=== PATIENT | female | born 1960 | race African-American/Black ===

== ENCOUNTER 2017-06-24 10:40 | Emergency (ER) | payer OTHER ==
[2017-06-24 10:52] VITALS: TEMP 98.1; BMI 32.5
--- NOTE | 2017-06-24 12:01 | PDOC ---
History of Present Illness - General History Source: Patient - History of Present Illness Timing/Duration: reports: resolved prior to arrival Quality: reports: mild <Umm Will Last Filed: 06/24/17 12:11> <SheltonRosanna - Last Filed: 06/24/17 12:21> - General Chief Complaint: Nausea Stated Complaint: NAUSEA Time Seen by Provider: 06/24/17 11:18 Past History - Past Medical History COPD: No Diabetes: Yes Thyroid Disease: Yes (HYPO) - Suicide/Smoking/Psychosocial Hx Smoking History: Never smoked <Umm Will - Last Filed: 06/24/17 12:11> <Brenna Peoplesth - Last Filed: 06/24/17 12:21> - Past Medical History Allergies/Adverse Reactions: Allergies Allergy/AdvReac Type Severity Reaction Status Date / Time Penicillins Allergy Hives Verified 06/24/17 10:48 Review of Systems - Review of Systems Constitutional: No: Chills, Fever Respiratory: No: Shortness of Breath Cardiac (ROS): No: Chest Pain ABD/GI: Yes: Nausea. No: Vomiting, Abdominal cramping <Umm Will Last Filed: 06/24/17 12:11> *Physical Exam - Vital Signs Last Vital Signs Temp Pulse Resp BP Pulse Ox 98.1 F 91 H 19 145/81 97 06/24/17 10:48 06/24/17 10:48 06/24/17 10:48 06/24/17 10:48 06/24/17 10:48 - Physical Exam General Appearance: Yes: Appropriately Dressed. No: Apparent Distress HEENT: positive: Normal Voice Neck: positive: Supple Respiratory/Chest: positive: Lungs Clear, Normal Breath Sounds. negative: Respiratory Distress Cardiovascular: positive: Regular Rate, S1, S2 Gastrointestinal/Abdominal: positive: Soft. negative: Tender Integumentary: positive: Dry, Warm Neurologic: positive: Fully Oriented, Alert, Normal Mood/Affect <Umm Will Last Filed: 06/24/17 12:11> - Vital Signs Last Vital Signs Temp Pulse Resp BP Pulse Ox 98.1 F 86 20 137/84 97 06/24/17 10:48 06/24/17 12:11 06/24/17 12:11 06/24/17 12:11 06/24/17 10:48 <Rosanna Peoples - Last Filed: 06/24/17 12:21> Medical Decision Making - Medical Decision Making 06/24/17 11:58 56-year-old female, denies any past medical history, presents with nausea that has since resolved. Patient states while at work today, she felt like she had an "upset stomach", was nauseous, and felt a bitter taste in the back of her mouth. States symptoms resolved on its own but here for evaluation. No history of similar episode. Patient denies chest pain, shortness of breath or diaphoresis. Patient well-appearing and stable in ED with unremarkable exam. Possible gastritis/GERD. As symptoms have since resolved, no intervention needed in ED. Will dc with PMD follow-up if symptoms recur <Umm Will - Last Filed: 06/24/17 12:11> *DC/Admit/Observation/Transfer <Umm Will - Last Filed: 06/24/17 12:11> - Attestations Physician Attestion: I reviewed the case with the mid-level practitioner and agree with the mid- level practitioner's assessment, diagnosis and disposition. <Rosanna Peoples - Last Filed: 06/24/17 12:21> Diagnosis at time of Disposition: Nausea - Discharge Dispostion Disposition: HOME Condition at time of disposition: Improved - Referrals - Patient Instructions Printed Discharge Instructions: Gastritis Additional Instructions: Your symptoms could possibly represent gastritis or GERD. If symptoms recur, you can try Pepcid, Zantac or Maalox [id number] up with your PMD - Post Discharge Activity
[2017-06-24 12:13] VITALS: BP 137/84; PULSE 86
== END 2017-06-24 12:20 | disposition home or self-care (01) ==
LOC: JER 10:40
DX: R11.0 Nausea (principal); E03.9 Hypothyroidism, unspecified; E11.9 Type 2 diabetes mellitus without complications
CPT/HCPCS: 99281-25

== ENCOUNTER 2017-09-20 07:19 | Emergency (ER) | payer OTHER ==
[2017-09-20 07:36] VITALS: BP 140/77; PULSE 72; TEMP 98; BMI 32.5
[2017-09-20] MEDS ORDERED: IBUPROFEN 600 MG TABLET (FP) PO ONE ×2 (08:14→08:33)
[2017-09-20] MEDS ORDERED: traMADol HCL 50 MG TABLET PO ONE (08:14)
[2017-09-20] MEDS ORDERED: traMADol HCL 50 MG TABLET ONE (08:33)
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
== END 2017-09-20 10:08 | disposition home or self-care (01) ==
LOC: JER 07:19
DX: S63.501A Unspecified sprain of right wrist, initial encounter (principal); S30.0XXA Contusion of lower back and pelvis, initial encounter; V47.6XXA Car passenger injured in collision with fixed or stationary object in traffic accident, initial encounter; Y92.488 Other paved roadways as the place of occurrence of the external cause; Y93.89 Activity, other specified; Y99.8 Other external cause status; E11.9 Type 2 diabetes mellitus without complications; Z79.82 Long term (current) use of aspirin; E03.9 Hypothyroidism, unspecified; Z79.84 Long term (current) use of oral hypoglycemic drugs
CPT/HCPCS: 73110-TC-RT-FY; 99281-25